=== PATIENT | female | born 1990 | race Caucasian/White ===

== ENCOUNTER → 2019-06-02 | Outpatient (CLI) | payer BC ==
[2019-06-02 11:57] LABS: HEMATOCRIT 34.4 % (37.0-47.0); HEMOGLOBIN 11.1 g/dL (12.5-16.0); MEAN CELL VOLUME 82 fl (78-100); MEAN CORPUSCULAR HEMOGLOBIN 26 pg (27-31); MEAN CORPUSCULAR HGB CONC 32 g/dL (33-37); MEAN PLATELET VOLUME 9.3 fl (7.4-10.4); PLATELET COUNT 266 K/mm3 (130-400); WHITE BLOOD COUNT 13.9 K/mm3 (4.8-10.8)
[2019-06-02 12:10] LABS: ALBUMIN 3.9 g/dL (3.5-5.0); POTASSIUM 3.7 mmol/L (3.5-5.1)
[2019-06-02 12:11] LABS: CALCIUM 8.8 mg/dL (8.3-10.5)
[2019-06-02 12:12] LABS: TOTAL PROTEIN 7.1 g/dL (6.4-8.3)
[2019-06-02 12:14] LABS: TOTAL BILIRUBIN 0.8 mg/dL (0.2-1.2)
[2019-06-02 12:52] LABS: LYMPHOCYTE 6 % (20-51); NEUTROPHILS 89 % (42-75)
[2019-06-02 12:53] LABS: MONOCYTE 5 % (3-10)
== END ==
LOC: LAB 11:35
PROVIDERS: Nurse Practitioner
DX: L03.116 Cellulitis of left lower limb (principal)